=== PATIENT | male | born 1985 | race Caucasian/White ===

== ENCOUNTER → 2016-11-24 | Outpatient (CLI) | payer MEDICAID ==
[~2016-11-24] MED LIST: ALBUTEROL0.63 MG/3 IH; AMARYL2 MG PO; AUGMENTIN875 MG PO; GLUCOPHAGE-DPS500 MG PO; INVANZ1 GM IV; MAALOX DPS30 ML PO; MYCAMINE100 MG IV; NORCO 5-325 TA1 EACH PO; NORMAL SALINE FL5 ML IV; PRILOSEC DPS20 MG PO; PROAIR RESPICL90 MCG IH; SYMBICORT160 MCG/6 IH; SYNTHROID50 MCG PO; TYLENOL #3 DPS1 TAB PO; ZESTRIL DPS10 MG PO; ZOFRAN4 MG PO
== END | disposition home or self-care (01) ==
LOC: RAD.S 07:46
PROC: BW11YZZ Fluoroscopy of Abdomen and Pelvis using Other Contrast (ICD-10-PCS; principal; 2016-11-24)
DX: Z46.82 Encounter for fitting and adjustment of non-vascular catheter (principal)

== ENCOUNTER 2016-12-19 11:34 | Emergency (ER) | payer MEDICAID ==
--- NOTE | 2016-12-21 13:11 | ER ---
ADMIT: 12/19/2016 RM/LOC: [facility] MR#: [id number] [facility] [id number] JENNIFER ACUÑA [address] [place] [address] Emergency Room Report SEX: M AGE: 31 : 1985 DATE: 12/19/2016 A 31-year-old, comes to the Emergency Department with several hours worth of severe abdominal pain in the epigastrium in the right side. He has recently had cholecystectomy and biliary stent placed. He was able to eat today even despite the pain. See T-sheet for remainder of history and physical. CT scan shows no acute findings. CBC; he has hemoglobin 11.7 and glucose 112. The patient is diagnosed with abdominal pain. Instructed to follow up with his primary doctor this week. Pedro Lewis MD/ hawk JOB #: [id number] CC: Pedro Lewis MD, Attending Physician Clayton Tristan MD, Family Physician
== END 2016-12-19 14:31 | disposition home or self-care (01) ==
LOC: ER 11:34
DX: R10.13 Epigastric pain (principal); Z88.1 Allergy status to other antibiotic agents; Z87.891 Personal history of nicotine dependence; Z79.899 Other long term (current) drug therapy

== ENCOUNTER 2017-03-06 21:04 | Emergency (ER) | payer MEDICAID | END 2017-03-06 22:35 | disposition left against medical advice (07) | LOC: ER 21:04 | DX: Z53.21 Procedure and treatment not carried out due to patient leaving prior to being seen by health care provider (principal) ==